=== PATIENT | female | born 1965 | race Caucasian/White ===

== ENCOUNTER 2023-01-18 11:35 | Outpatient (CLI) | payer BC | END 2023-01-18 11:36 | disposition home or self-care (01) | LOC: SCSMRI 11:35 | PROVIDERS: ATTEND Family Medicine | DX: M54.16 Radiculopathy, lumbar region (principal); M43.16 Spondylolisthesis, lumbar region; M48.061 Spinal stenosis, lumbar region without neurogenic claudication; M51.24 Other intervertebral disc displacement, thoracic region; M51.37 Other intervertebral disc degeneration, lumbosacral region; M89.38 Hypertrophy of bone, other site; M48.04 Spinal stenosis, thoracic region; M51.35 Other intervertebral disc degeneration, thoracolumbar region; M48.07 Spinal stenosis, lumbosacral region | CPT/HCPCS: 72148 ==

== ENCOUNTER 2023-04-26 15:53 | Outpatient (CLI) | payer BC | END 2023-04-26 15:54 | disposition home or self-care (01) | LOC: SCSRAD 15:53 | PROVIDERS: ATTEND Neurological Surgery | DX: M47.26 Other spondylosis with radiculopathy, lumbar region (principal) | CPT/HCPCS: 72100 ==